=== PATIENT | female | born 2000 | race Caucasian/White ===

== ENCOUNTER → 2020-09-28 | Outpatient (CLI) | payer OTHER ==
--- NOTE | 2020-09-29 01:39 | REP ---
INDICATION: PAIN COMPARISON: None. TECHNIQUE: AP, lateral, bilateral oblique views left wrist. FINDINGS: The carpal bones, surrounding osseous structures, soft tissues, and joint spaces are normal. There is no evidence for acute fracture or dislocation. No subcutaneous emphysema or radiodense foreign body. IMPRESSION: Normal wrist series. No obvious acute pathology noted. <Electronically signed by Jeffrey Sidhu > 09/29/20 [id number]
== END ==
LOC: M WUC 19:05
PROVIDERS: ATTEND Physician Assistant
DX: M25.532 Pain in left wrist (principal)

== ENCOUNTER 2021-01-05 01:08 | Emergency (ER) | payer OTHER ==
[~2021-01-05] VITALS: Ht 172.7 cm; Wt 138.8 kg
--- NOTE | 2021-01-05 05:10 | REPVR ---
PROCEDURE INFORMATION: Exam: XR Sacrum and Coccyx, 2 or More Views Exam date and time: 01/05/2021 4:24 AM Age: 20 years old Clinical indication: Pain in coccyx area; Additional info: Fall, buttock pain TECHNIQUE: Imaging protocol: XR of the sacrum and coccyx, 2 or more views. COMPARISON: No relevant prior studies available. FINDINGS: Bones/joints: Normal. No acute fracture. Soft tissues: Normal. IMPRESSION: No acute findings. Electronically signed by: Ed Melton On 01/05/2021 05:10:55 AM
[2021-01-05 05:19] VITALS: BP 150/81
[2021-01-05] MEDS ORDERED: METAL LOCK LOOP XX ONE (05:19)
== END 2021-01-05 05:43 | disposition home or self-care (01) ==
LOC: M ED 01:08
DX: S30.0XXA Contusion of lower back and pelvis, initial encounter (principal); W10.9XXA Fall (on) (from) unspecified stairs and steps, initial encounter; Y92.009 Unspecified place in unspecified non-institutional (private) residence as the place of occurrence of the external cause; Y93.9 Activity, unspecified; Y99.9 Unspecified external cause status; Z88.8 Allergy status to other drugs, medicaments and biological substances

== ENCOUNTER → 2021-04-06 | Outpatient (REF) | payer OTHER, BC | LOC: M LAB REF 09:38 | PROVIDERS: ATTEND Nurse Practitioner Family | DX: R30.0 Dysuria (principal) ==

== ENCOUNTER 2021-08-15 18:17 | Emergency (ER) | payer BC, OTHER, SELFPAY ==
[~2021-08-15] VITALS: Ht 167.6 cm; Wt 104.5 kg
[2021-08-15 18:17] VITALS: BP 140/92
== END 2021-08-15 20:31 | disposition left against medical advice (07) ==
LOC: M ED 18:17
DX: Z53.21 Procedure and treatment not carried out due to patient leaving prior to being seen by health care provider (principal)

== ENCOUNTER 2021-12-17 18:31 | Emergency (ER) | payer OTHER, SELFPAY ==
[~2021-12-17] VITALS: Ht 170.2 cm; Wt 136.3 kg
[2021-12-17 18:32] VITALS: BP 138/89
[2021-12-17] MEDS ORDERED: BENZ200C70 PO (19:36)
[2021-12-17] MEDS ORDERED: PROAAER10 INH (19:36)
== END 2021-12-17 20:04 | disposition home or self-care (01) ==
LOC: M ED 18:31
DX: R05.9 Cough, unspecified (principal); M79.10 Myalgia, unspecified site; R06.00 Dyspnea, unspecified; R51.9 Headache, unspecified; Z20.822 Contact with and (suspected) exposure to COVID-19; J45.909 Unspecified asthma, uncomplicated; Z88.8 Allergy status to other drugs, medicaments and biological substances
CPT/HCPCS: 99283; U0003

== ENCOUNTER 2022-03-21 09:42 | Emergency (ER) | payer OTHER, SELFPAY ==
[~2022-03-21] VITALS: Ht 167.6 cm; Wt 137.5 kg
[~2022-03-21 09:42] MED LIST: BENZ200C70 PO; PROAAER10 INH
[2022-03-21 12:52] VITALS: BP 125/74
== END 2022-03-21 12:54 | disposition home or self-care (01) ==
LOC: M ED 09:42
DX: S20.221A Contusion of right back wall of thorax, initial encounter (principal); W01.198A Fall on same level from slipping, tripping and stumbling with subsequent striking against other object, initial encounter; Y92.89 Other specified places as the place of occurrence of the external cause; Y93.E5 Activity, floor mopping and cleaning; Y99.1 Military activity; Z88.8 Allergy status to other drugs, medicaments and biological substances

== ENCOUNTER 2022-09-01 05:21 | Emergency (ER) | payer OTHER, SELFPAY ==
[~2022-09-01] VITALS: Ht 167.6 cm; Wt 129.0 kg
[2022-09-01 06:01] LABS: BASO % 0.3 % (0.0-1.0); EOS # 0.2 10^3/uL (0.0-0.5); EOS % 1.6 % (0.0-3.0); HEMATOCRIT 41.2 % (36.0-47.0); HEMOGLOBIN 13.7 g/dl (12.0-15.5); LYMPH # 1.6 10^3/uL (1.5-5.0); LYMPH % 12.5 % (24.0-44.0); MEAN CORPUSCULAR HGB CONC 33.3 g/dl (32.0-36.5); MEAN CORPUSCULAR VOLUME 87.1 fl (80.0-96.0); MONO # 0.8 10^3/uL (0.0-0.8); MONO % 6.1 % (2.0-8.0); NEUTROPHILS # 9.9 10^3/uL (1.5-8.5); NEUTROPHILS % 79.2 % (36.0-66.0); PLATELET COUNT, AUTOMATED 310 10^3/uL (150-450); RED BLOOD COUNT 4.73 10^6/uL (4.00-5.40); WHITE BLOOD COUNT 12.4 10^3/uL (4.0-10.0)
[2022-09-01 06:26] LABS: APPEARANCE, URINE MANUAL HAZY (CLEAR); COLOR, URINE MANUAL YELLOW (YELLOW); GLUCOSE, URINE (UA) MANUAL NEGATIVE (NEGATIVE); KETONE, URINE MANUAL NEGATIVE (NEGATIVE); PROTEIN, URINE MANUAL 1+ mg/dL (NEGATIVE); SPECIFIC GRAVITY,URINE MANUAL 1.025 (1.002-1.035)
[2022-09-01 06:27] LABS: BILIRUBIN, URINE MANUAL 1+ (NEGATIVE); BLOOD URINE MANUAL POSITIVE (NEGATIVE); LEUKOCYTE ESTERASE, URINE MAN TRACE (NEGATIVE); NITRITE, URINE MANUAL NEGATIVE (NEGATIVE); UROBILINOGEN, URINE MANUAL 4 MG mg/dl (NORMAL)
[2022-09-01 06:36] LABS: BACTERIA, URINE MOD AMOUNT; HYALINE CAST, URINE NONE SEEN /lpf (0-1); MUCUS, URINE LARGE AMOUNT (NEGATIVE); SQUAMOUS EPITHELIAL CELL URINE SMALL AMOUNT /hpf (SMALL AMT)
[2022-09-01 07:34] LABS: GC DNA AMPLIFICATION NEGATIVE (NEGATIVE)
[2022-09-01 10:11] VITALS: BP 125/58
== END 2022-09-01 10:26 | disposition home or self-care (01) ==
LOC: M ED 05:21
DX: O20.9 Hemorrhage in early pregnancy, unspecified (principal); Z3A.10 10 weeks gestation of pregnancy; Z88.8 Allergy status to other drugs, medicaments and biological substances

== ENCOUNTER → 2022-09-18 | Outpatient (CLI) | payer OTHER ==
[2022-09-18 15:46] LABS: HEMATOCRIT 40.3 % (36.0-47.0); HEMOGLOBIN 13.2 g/dl (12.0-15.5); MEAN CORPUSCULAR HEMOGLOBIN 29.4 pg (27.0-33.0); MEAN CORPUSCULAR HGB CONC 32.8 g/dl (32.0-36.5); MEAN CORPUSCULAR VOLUME 89.8 fl (80.0-96.0); PLATELET COUNT, AUTOMATED 290 10^3/uL (150-450); RED BLOOD COUNT 4.49 10^6/uL (4.00-5.40); WHITE BLOOD COUNT 10.8 10^3/uL (4.0-10.0)
[2022-09-18 16:19] LABS: HEMOGLOBIN A1c 5.1 %
[2022-09-18 16:47] LABS: HEPATITIS C VIRUS ABY INDEX < 0.0 INDEX (<0.8); HIV 1&2 SCREEN CENTAUR NEGATIVE (NEGATIVE)
[2022-09-18 17:10] LABS: GC DNA AMPLIFICATION NEGATIVE (NEGATIVE)
== END ==
LOC: M PLALAB 13:48
PROVIDERS: ATTEND Advanced Practice Midwife
DX: O99.211 Obesity complicating pregnancy, first trimester (principal)

== ENCOUNTER → 2022-10-20 | Outpatient (CLI) | payer OTHER | LOC: M WHC 14:46 | PROVIDERS: ATTEND Advanced Practice Midwife | DX: Z34.91 Encounter for supervision of normal pregnancy, unspecified, first trimester (principal) ==

== ENCOUNTER → 2022-10-20 | Outpatient (CLI) | payer OTHER | LOC: M PLALAB 14:53 | PROVIDERS: ATTEND Advanced Practice Midwife | DX: Z34.02 Encounter for supervision of normal first pregnancy, second trimester (principal) ==

== ENCOUNTER → 2022-11-22 | Outpatient (CLI) | payer OTHER | LOC: M RAD 15:11 | PROVIDERS: ATTEND Advanced Practice Midwife | DX: O99.212 Obesity complicating pregnancy, second trimester (principal) ==

== ENCOUNTER → 2022-12-26 | Outpatient (CLI) | payer OTHER ==
[2022-12-26 15:38] LABS: HEMATOCRIT 37.8 % (36.0-47.0); HEMOGLOBIN 12.5 g/dl (12.0-15.5); MEAN CORPUSCULAR HEMOGLOBIN 30.1 pg (27.0-33.0); MEAN CORPUSCULAR HGB CONC 33.1 g/dl (32.0-36.5); MEAN CORPUSCULAR VOLUME 91.1 fl (80.0-96.0); PLATELET COUNT, AUTOMATED 237 10^3/uL (150-450); RED BLOOD COUNT 4.15 10^6/uL (4.00-5.40); WHITE BLOOD COUNT 12.2 10^3/uL (4.0-10.0)
[2022-12-26 17:03] LABS: GC DNA AMPLIFICATION NEGATIVE (NEGATIVE)
== END ==
LOC: M PLALAB 10:33
PROVIDERS: ATTEND Advanced Practice Midwife
DX: Z34.02 Encounter for supervision of normal first pregnancy, second trimester (principal); Z3A.00 Weeks of gestation of pregnancy not specified

== ENCOUNTER → 2023-01-04 | Outpatient (CLI) | payer OTHER | LOC: M WHC 15:26 | PROVIDERS: ATTEND Advanced Practice Midwife | DX: Z34.02 Encounter for supervision of normal first pregnancy, second trimester (principal) ==

== ENCOUNTER → 2023-03-06 | Outpatient (REF) | payer OTHER | LOC: M PLALAB 12:33 | PROVIDERS: ATTEND Advanced Practice Midwife | DX: Z34.80 Encounter for supervision of other normal pregnancy, unspecified trimester (principal) ==

== ENCOUNTER → 2023-03-16 | Outpatient (CLI) | payer OTHER ==
[~2023-03-16] MED LIST changes: +PNVTAB4 PO
== END ==
LOC: M WHC 09:10
PROVIDERS: ATTEND Advanced Practice Midwife
DX: O26.849 Uterine size-date discrepancy, unspecified trimester (principal)

== ENCOUNTER 2023-03-20 23:36 | Inpatient (IN) | payer OTHER ==
[~2023-03-20] VITALS: Ht 167.6 cm; Wt 143.8 kg
[~2023-03-20 23:36] MED LIST changes: -PNVTAB4 PO
[2023-03-20 23:58] VITALS: BP 146/74
[2023-03-21] VITALS (48 sets, daily range): BP systolic 91–151; BP diastolic 51–90
[2023-03-21] MEDS ORDERED: PNVTAB4 PO (00:09)
[2023-03-21] MEDS ORDERED: OXYTOCIN 30UNITS IN 0.9% NaCl 500ML IV BAG As Ordered ONE ×3 (01:15→20:54)
[2023-03-21] MEDS ORDERED: LACTATED RINGER'S 1000 ML IV STA (01:18)
[2023-03-21] MEDS ORDERED: OXYTOCIN DRIP 30 UNITS in IV 1 EA IV PRN (01:20)
[2023-03-21] MEDS ORDERED: OXYTOCIN DRIP 30 UNITS in IV 1 EA IV SCH ×2 (01:20→20:40)
[2023-03-21] MEDS ORDERED: TRANEXAMIC ACID INJection 1,000 MG in NS 100 ML IV PRN (01:20)
[2023-03-21] MEDS ORDERED: LIDOCAINE 1% MDV 20ML VIAL INFIL PRN (01:20)
[2023-03-21] MEDS ORDERED: CARBOPROST TROMETHAMINE 250 MCG/ML AMP IM PRN (01:20)
[2023-03-21 01:41] LABS: HEMATOCRIT 36.7 % (36.0-47.0); HEMOGLOBIN 12.4 g/dl (12.0-15.5); MEAN CORPUSCULAR HEMOGLOBIN 29.2 pg (27.0-33.0); MEAN CORPUSCULAR HGB CONC 33.8 g/dl (32.0-36.5); MEAN CORPUSCULAR VOLUME 86.6 fl (80.0-96.0); PLATELET COUNT, AUTOMATED 237 10^3/uL (150-450); RED BLOOD COUNT 4.24 10^6/uL (4.00-5.40); WHITE BLOOD COUNT 13.8 10^3/uL (4.0-10.0)
[2023-03-21] MEDS: LR 1,000 ML IV SCH ×3 (01:57→15:31)
[2023-03-21 02:08] LABS: URIC ACID 4.4 MG/DL (3.1-7.8)
[2023-03-21 02:10] LABS: LDH LACTATE DEHYDROGENASE 145 U/L (120-246)
[2023-03-21 02:11] LABS: ALT/SGPT 10 U/L (7.0-40); AST/SGOT 10 U/L (<34); BILIRUBIN,TOTAL 0.2 MG/DL (0.3-1.2); CREATININE FOR GFR 0.42 MG/DL (0.55-1.30); GLOMERULAR FILTRATION RATE > 60.0 (>60)
[2023-03-21 04:04] LABS: TOTAL PROTEIN,RANDOM URINE 27.9 MG/DL (0.0-14.0)
[2023-03-21 04:09] LABS: CREATININE,RANDOM URINE 55.3 MG/DL
[2023-03-21] MEDS ORDERED: ePHEDrine SULFATE 25 MG/5 ML(5MG/ML) SYRINGE IVP PRN (04:40)
[2023-03-21] MEDS ORDERED: EPIDURAL/PCA KEYS XX PRN (04:40)
[2023-03-21] MEDS: FENTANYL/ROPIVACAINE/NACL BAG 100 ML EPIDURAL SCH ×2 (04:40→13:14)
[2023-03-21] MEDS ORDERED: NALOXONE INJ 0.4MG/1ML VIAL IV PRN ×3 (04:40→20:45)
[2023-03-21] MEDS ORDERED: ONDANSETRON 4MG 2ML VIAL IV PRN ×2 (04:40→20:45)
[2023-03-21] MEDS ORDERED: LR 500 ML IV PRN (04:40)
[2023-03-21] MEDS ORDERED: diphenhydrAMINE 50MG/ML VIAL IV PRN ×2 (04:40→20:45)
[2023-03-21] MEDS ORDERED: ceFAZolin SOD 3 GM IV Place Holder IV ONE (18:15)
[2023-03-21] MEDS ORDERED: AZITHROMYCIN INJ 500 MG, VIAL MATE ADAPTER 1 EACH in NS 250 ML IV ONE (18:15)
[2023-03-21] MEDS ORDERED: BICITRA 30ML SOLN UDC PO ONE (18:15)
[2023-03-21] MEDS ORDERED: ceFAZolin SOD 2 GM in IV 1 EA IV ONE (18:20)
[2023-03-21] MEDS ORDERED: ceFAZolin SOD 1 GM in D5W MINI-BAG PLUS 50 ML IV ONE (19:00)
[2023-03-21] MEDS ORDERED: ONDANSETRON 4MG 2ML VIAL As Ordered ONE (20:13)
[2023-03-21] MEDS ORDERED: ACETAMINOPHEN 1000MG 100ML IV BAG As Ordered ONE (20:17)
[2023-03-21 20:28] LABS: CORD GAS ABE A -1.2; CORD GAS ABE V -2.5; CORD GAS HCO3 A 25.2 MMOL/L; CORD GAS HCO3 V 24.8 MMOL/L; CORD GAS O2 SAT A 38.3 %; CORD GAS O2 SAT V 22.6 %; CORD GAS PCO2 A 48.5 mmHg; CORD GAS PCO2 V 52.2 mmHg; CORD GAS PH A 7.334 UNITS; CORD GAS PH V 7.294 UNITS; CORD GAS PO2 A 17.8 mmHg; CORD GAS PO2 V 13.6 mmHg; CORD GAS SBC A 21.9 MMOL/L; CORD GAS SBC V 20.5 MMOL/L; CORD GAS TCO2 A 26.7 MMOL/L; CORD GAS TCO2 V 26.4 MMOL/L
[2023-03-21] MEDS ORDERED: MORPHINE PRES-FREE INJ 10 MG/10 ML VIAL As Ordered ONE (20:31)
[2023-03-21] MEDS ORDERED: RHOGAM 300MCG (1500IU) INJ IM SCH (20:40)
[2023-03-21] MEDS ORDERED: SIMETHICONE 80MG CHEW TAB PO PRN (20:40)
[2023-03-21] MEDS ORDERED: PERCOCET 5MG/325MG TAB PO PRN (20:40)
[2023-03-21] MEDS ORDERED: **NOTE PATIENT COMMENT** MISC XX SCH (20:45)
[2023-03-21] MEDS: SLF 3 ML SYR IV SCH (20:45)
[2023-03-21] MEDS ORDERED: NALBUPHINE HCL 10 MG/ML 1ML AMP IV PRN (20:45)
[2023-03-21] MEDS ORDERED: METOCLOPRAMIDE INJ 10MG/2ML VIAL IV PRN (20:45)
[2023-03-21] MEDS ORDERED: OXYC1TAB23 PO (21:20)
[2023-03-21] MEDS ORDERED: IBUP80TA PO (21:20)
[2023-03-21] MEDS ORDERED: PERCOCET 5MG/325MG TAB As Ordered ONE (21:26)
[2023-03-21] MEDS: PERCOCET 5MG/325MG TAB PO PRN ×3 (21:29→23:36)
[2023-03-22] VITALS (9 sets, daily range): BP systolic 92–122; BP diastolic 46–59
[2023-03-22] MEDS: LR 1,000 ML IV SCH ×3 (01:27→12:40)
[2023-03-22] MEDS: KETOROLAC 30 MG/ML 1ML VIAL IV SCH ×3 (03:07→14:45)
[2023-03-22] MEDS: SLF 3 ML SYR IV SCH ×2 (04:45→09:27)
[2023-03-22 08:06] LABS: HEMATOCRIT 30.1 % (36.0-47.0); MEAN CORPUSCULAR HEMOGLOBIN 28.9 pg (27.0-33.0); MEAN CORPUSCULAR HGB CONC 32.9 g/dl (32.0-36.5); PLATELET COUNT, AUTOMATED 213 10^3/uL (150-450); RED BLOOD COUNT 3.42 10^6/uL (4.00-5.40); WHITE BLOOD COUNT 17.1 10^3/uL (4.0-10.0)
[2023-03-22 08:16] LABS: HEMOGLOBIN 9.9 g/dl (12.0-15.5)
[2023-03-22] MEDS: PRENATAL VITAMINS CHEWABLE TABLET PO SCH (09:09)
[2023-03-22] MEDS: PERCOCET 5MG/325MG TAB PO PRN (19:26)
[2023-03-22] MEDS: IBUPROFEN 800 MG TAB PO SCH (23:13)
[2023-03-23 02:00] VITALS: BP 117/64
[2023-03-23] MEDS: IBUPROFEN 800 MG TAB PO SCH ×2 (06:06→15:50)
[2023-03-23 06:23] VITALS: BP 123/59
[2023-03-23] MEDS: PRENATAL VITAMINS CHEWABLE TABLET PO SCH (08:07)
[2023-03-23] MEDS ORDERED: MEASLES,MUMPS,RUBELLA VACCINE INJ (MMR-II) SC.IMMUN ONE (09:00)
[2023-03-23] MEDS ORDERED: INFLUENZA QUADRIVALENT PF VACCINE 0.5ML SYRINGE IM.IMMUN ONE (09:00)
[2023-03-23 10:13] VITALS: BP 138/72
[2023-03-23 18:00] VITALS: BP 111/70
== END 2023-03-23 18:25 | disposition home or self-care (01) | DRG 540 ==
LOC: M LDO 23:36 → M LDI 03-21 01:03 → M OBS 03-21 22:05
PROVIDERS: ADMIT Obstetrics & Gynecology; ATTEND Specialist
PROC: 10D00Z1 Extraction of Products of Conception, Low, Open Approach (ICD-10-PCS; principal; 2023-03-21 19:30)
DX: O42.02 Full-term premature rupture of membranes, onset of labor within 24 hours of rupture (principal); O99.214 Obesity complicating childbirth; Z3A.39 39 weeks gestation of pregnancy; O62.0 Primary inadequate contractions; Z37.0 Single live birth